=== PATIENT | female | born 1945 | race Caucasian/White ===

== ENCOUNTER 2017-08-10 11:53 | Emergency (ER) | payer MEDICARE, BC ==
[~2017-08-10] VITALS: Ht 160 cm; Wt 52.7 kg
[~2017-08-10 11:53] MED LIST: ASPI81 PO; CADU10TA PO; LANSO15 PO; LISI2.5T3 PO; LORA10TA PO; [UNRECOGNIZED DRUG - CODE] PO
[2017-08-10 11:56] VITALS: BP 172/76; PULSE 82; RESP 17; TEMP 98.1; O2SAT 98
--- NOTE | 2017-08-10 12:11 | PD ---
HPI Chief Complaint: Fall Time Seen by Provider: 12:01 Travel History International Travel<30 days: No Contact w/Intl Traveler<30days: No Traveled to known affect area: No History of Present Illness HPI just prior to arriving (ABOUT 20MIN AGO) patient mechanically tripped and fell landing on left hip and then striking her left wrist...pt denies loc, it was witnessed by significant other who also collaborated the story. left hip pain 7 /10, worse by weight bearing, able to ambulate though painfully. NO MAJOR ALLEVIATING FACTORS...NO ASSOCIATED FACTORS pcp: ld all:nkda pmhx: scleroderma, htn PFSH Past Medical History Autoimmune Disease: Yes (SCLERODERMA) Diminished Hearing: No Gastrointestinal Disorders: Yes (BARRETTS ESOPHAGUS) Hiatal Hernia: Yes Hypertension: Yes Menopausal: Yes Past Surgical History Appendectomy: Yes Tonsillectomy: Yes Social History Alcohol Use: Yes (RARELY) Tobacco Use: No Substance Use: No Allergies-Medications (Allergen,Severity, Reaction): Coded Allergies: No Known Allergies (Verified Adverse Reaction, Unknown, 08/10/17) Reported Meds & Prescriptions Reported Meds & Active Scripts Active Reported All Day Allergy (Cetirizine HCl) 10 Mg Tab 10 Mg PO DAILY Prevacid (Lansoprazole) 30 Mg Capdr 30 Mg PO DAILY Aspirin EC (Aspirin) 81 Mg Tabdr 81 Mg PO DAILY Cuprimine (Penicillamine) 250 Mg Cap 500 Mg PO DAILY [place]uet (Amlodipine-Atorvastatin) 5-10 Mg Tab 1 Tab PO DAILY Lisinopril 40 Mg Tab 40 Mg PO DAILY Review of Systems Except as stated in HPI: all other systems reviewed are Neg General / Constitutional: No: Fever Eyes: No: Visual changes HENT: No: Headaches Cardiovascular: No: Chest Pain or Discomfort Respiratory: No: Shortness of Breath Gastrointestinal: No: Abdominal Pain Genitourinary: No: Dysuria Musculoskeletal: Positive: Pain Skin: No Rash Neurologic: No: Weakness Psychiatric: No: Depression Endocrine: No: Polydipsia Hematologic/Lymphatic: No: Easy Bruising Physical Exam Narrative GENERAL: SKIN: Warm and dry. HEAD: Atraumatic. Normocephalic. EYES: Pupils equal and round. No scleral icterus. No injection or drainage. ENT: No nasal bleeding or discharge. Mucous membranes pink and moist. NECK: Trachea midline. No JVD. CARDIOVASCULAR: Regular rate and rhythm. RESPIRATORY: No accessory muscle use. Clear to auscultation. Breath sounds equal bilaterally. GASTROINTESTINAL: Abdomen soft, non-tender, nondistended. MUSCULOSKELETAL: Extremities without clubbing, cyanosis, or edema. No obvious deformities. ttp over left lateral hip area/near trochanter but without shortening or external rotation...left forearm tender over distal radius and ulna but no deformity NEUROLOGICAL: Awake and alert. No obvious cranial nerve deficits. Motor grossly within normal limits. Five out of 5 muscle strength in the arms and legs. Normal speech. PSYCHIATRIC: Appropriate mood and affect; insight and judgment normal. Data Data Last Documented VS Vital Signs Date Time Temp Pulse Resp B/P (MAP) Pulse Ox O2 Delivery O2 Flow Rate FiO2 08/10/17 12:44 87 20 141/60 (87) 98 Room Air 08/10/17 11:56 98.1 Orders Orders Hip, Uni(Ap&Lat) W Ap Pelvis (08/10/17 12:06) Tramadol (Ultram) (08/10/17 12:15) Forearm (2vws) (08/10/17 ) MDM Medical Decision Making Medical Screen Exam Complete: Yes Emergency Medical Condition: Yes Medical Record Reviewed: Yes Differential Diagnosis FX V DISLOCATION V SUBLUXATION V CONTUSION Narrative Course HIP XRAY IS NEG FOR FX/DISLOCATION.....HOWEVER LEFT WRIST SHOWED AN IMPACTED LEFT DISTAL RADIUS FX Diagnosis Primary Impression: LEFT DISTAL RADIUS FRACTURE Additional Impression: LEFT HIP CONTUSION Referrals: Martir Sal MD FOR FURTHER CARE OF YOUR LEFT BROKEN WRIST AND ADVISE ABOUT YOUR HIP BRUISE. Patient Instructions: General Instructions, Hip Contusion (GEN), Wrist Fracture in Adults (ED) Scripts Tramadol (Ultram) 50 Mg Tab 50 MG PO Q6H Y for PAIN, #15 TAB 0 Refills Prov: Masoud Martin MD 08/10/17 Disposition: 01 DISCHARGE HOME Condition: Stable Masoud Martin MD Aug 10, 2017 12:11
[2017-08-10] MEDS ORDERED: traMADol HCL 50 MG TAB PO ONE (12:15)
[2017-08-10] MEDS ORDERED: CETI10TA71 PO (12:22)
[2017-08-10] MEDS ORDERED: PREV30CA36 PO (12:22)
[2017-08-10] MEDS ORDERED: CADU5TAB PO (12:22)
[2017-08-10] MEDS ORDERED: ASPI81TA23 PO (12:22)
[2017-08-10] MEDS ORDERED: LISI40TA PO (12:22)
[2017-08-10] MEDS ORDERED: PENI PO (12:22)
[2017-08-10 12:44] VITALS: BP 141/60; PULSE 87; RESP 20; O2SAT 98
--- NOTE | 2017-08-10 12:45 | RADRPT ---
EXAM DATE/TIME: 08/10/2017 12:17 [facility] COMPARISON: No previous studies available for comparison. EXTERNAL COMPARISON : INDICATIONS : Left hip pain; fall this morning. MEDICAL HISTORY : None. SURGICAL HISTORY : None. ENCOUNTER: Initial ACUITY: 1 day PAIN SCORE: 10/10 LOCATION: Left hip. FINDINGS: The left hip and pelvis appear intact. Mild arthropathy of the left hip is noted. There is joint space narrowing with marginal spurring. There are no significant soft tissue abnormalities. Mild osteitis pubis is noted. CONCLUSION: 1. No evidence of acute fracture or dislocation. 2. Mild arthropathy of the left hip. 3. Osteitis pubis Padilla Yates MD on August 10, 2017 at 12:41 Board Certified Radiologist. This report was verified electronically.
--- NOTE | 2017-08-10 12:47 | RADRPT ---
EXAM DATE/TIME: 08/10/2017 12:17 [facility] COMPARISON: No previous studies available for comparison. INDICATIONS : Left forearm pain all over; fall this morning. MEDICAL HISTORY : None. SURGICAL HISTORY : None. ENCOUNTER: Initial ACUITY: 1 day PAIN SCORE: 8/10 LOCATION: Left forearm. FINDINGS: A mildly impacted nondisplaced fracture is identified through the distal left radius. The radiocarpal joint is intact. There is mild positive variance of the distal ulna with degenerative disease seen a long the ulnar styloid. The left radius and ulna are otherwise intact. Left elbow is intact. CONCLUSION: Mildly impacted nondisplaced fracture of the distal radius Otherwise intact forearm Padilla Yates MD on August 10, 2017 at 12:43 Board Certified Radiologist. This report was verified electronically.
[2017-08-10] MEDS ORDERED: TRAM50 PO (12:54)
[2017-08-10] MEDS ORDERED: KETOROLAC TROMETHAMINE 60 MG/2 ML (IM) VIAL IM ONE (13:00)
== END 2017-08-10 13:28 | disposition home or self-care (01) ==
LOC: PHED 11:53
DX: S52.502A Unspecified fracture of the lower end of left radius, initial encounter for closed fracture (principal); S70.02XA Contusion of left hip, initial encounter; I10 Essential (primary) hypertension; W01.0XXA Fall on same level from slipping, tripping and stumbling without subsequent striking against object, initial encounter
CPT/HCPCS: 29125; 73090; 73502; 96372; 99284; J1885